=== PATIENT | female | born 1980 | race Caucasian/White ===

== ENCOUNTER 2023-01-30 14:46 | Observation (INO) | payer OTHER, SELFPAY ==
[2023-01-30] VITALS (27 sets, daily range): BP systolic 107–158; BP diastolic 63–100; PULSE 49–99; RESP 12–25; TEMP 36.7; O2SAT 97–100
--- NOTE | ~2023-01-30 | US_ITS ---
Procedure: Duplex Doppler examination of the bilateral carotids. Indication: Syncope Technique: Real time, color-flow and pulse wave Doppler examination of the bilateral carotids was performed. Findings: Gonzalez scale ultrasonography of the right neck demonstrated no significant plaque. There was demonstrat ion of normal color-flow and Doppler waveforms within the right common, internal and external carotid arteries. The peak systolic velocities in the right common, internal and external carotid arteries w ere demonstrated to be 89 cm/sec, 90 cm/sec and 76 cm/sec respectively. The right ICA/CCA ratio was 1 .0.The proximal right internal carotid artery demonstrates 0% stenosis relative to the normal distal artery lumen diameter. Gonzalez scale sonography of the left neck demonstrated no significant plaque. There was demonstration of normal color-flow and wave forms within the left common, internal and external carotid arteries. The peak systolic velocities in the left common, internal and external carotid arteries were demonstrate d to be 114cm/sec, 102 cm/sec and 87 cm/sec respectively. The left ICA/CCA ratio was 1.0. The proxima l left internal carotid artery demonstrates 0% stenosis relative to the normal distal artery lumen di ameter. There was antegrade flow demonstrated in the bilateral vertebral arteries. Impression: No hemodynamically significant stenosis of the bilateral internal carotid arteries. Antegrade flow in the bilateral vertebral arteries. Note: The methodology used is an indirect measurement validated against a direct method (such as the NASCET criteria) that compares diameters at the stenosis to the distal ICA. Reviewed, dictated and finalized at location . Impression: No hemodynamically significant stenosis of the bilateral internal carotid arter ies. Antegrade flow in the bilateral vertebral arteries. Note: The methodology used is an indirect measurement validated against a direct meth od (such as the NASCET criteria) that compares diameters at the stenosis to the distal ICA.
--- NOTE | ~2023-01-30 | MR_ITS ---
MRI of the brain Clinical History: Syncope Technique: Axial and sagittal T1-weighted images were acquired. These were followed by axial T2-weigh roshan, diffusion weighted, gradient, and FLAIR images. Findings: No abnormal signal seen in the brain parenchyma. No acute infarct, intracranial hemorrhage, or mass lesion. Ventricles and subarachnoid spaces are unremarkable. Orbits are unremarkable. Paranasal sinuses and m astoid air cells are clear. Major intracranial flow voids are intact. Sagittal midline structures are intact. IMPRESSION: Unremarkable exam. Reviewed, dictated and finalized at location M. IMPRESSION: Unremarkable exam.
--- NOTE | 2023-01-30 14:52 | ECG_ITS ---
Measurements Intervals [place] Rate: 80 P: 74 DE: 168 QRS: 62 QRSD: 93 T: -12 QT: 393 QTc: 453 Interpretive Statements SINUS RHYTHM POSSIBLE LEFT ATRIAL ENLARGEMENT INCOMPLETE RIGHT BUNDLE BRANCH BLOCK NONSPECIFIC ST & T-WAVE ABNORMALITY- INFERIOR LEADS BASELINE ARTIFACT- V2 BORDERLINE ECG NO PREVIOUS ECG AVAILABLE FOR COMPARISON Electronically Signed On 01-30-2023 15:28:26 CDT by Mu Gomez D.O.
[2023-01-30 15:16] LABS: Basophils Percent Auto 0.4 % (0.2-1.2); Eosinophils Percent Auto 0.3 % (0-4.4); Hematocrit 40.7 % (37.0-47.0); Hemoglobin 14.2 g/dL (12.0-15.0); Immature Granulocyte Absolute 0.02 K/mm3 (0.00-0.031); Immature Granulocyte Percent A 0.3 % (0-0.5); Lymphocytes Percent Auto 16.6 % (18.3-44.2); Mean Corpuscular HGB Conc 34.9 g/dl (32-36); Mean Corpuscular Hemoglobin 31.4 pg (26-34); Mean Platelet Volume 9.7 fl (7.4-10.4); Monocytes Absolute Auto 0.4 K/mm3 (0.1-0.6); Monocytes Percent Auto 4.8 % (2.6-8.5); Neutrophils Absolute Auto 5.6 K/mm3 (1.3-6.7); Neutrophils Percent Auto 77.6 % (45.5-73.1); Platelet Count Result 216 k/mm3 (150-375); Red Blood Count 4.52 M/mm3 (4.2-5.4); Red Cell Distribution Width 11.9 % (11.5-14.5); White Blood Count 7.2 K/mm3 (4.5-10.0)
[2023-01-30 15:26] LABS: Alanine Aminotransferase 10 U/L (6-35); Albumin Level 4.9 g/dL (3.5-5.1); Alkaline Phosphatase 69 U/L (38-126); Anion Gap 9 mmol/L (8-16); Aspartate Amino Transferase 25 U/L (14-36); Bilirubin,Total 1.5 mg/dL (0.2-1.3); Blood Urea Nitrogen 14 mg/dL (7-17); Calcium 9.2 mg/dL (8.4-10.2); Carbon Dioxide 24 mmol/L (22-30); Chloride 103 mmol/L (98-107); Estimated CRCL calculation 57 ml/min; Estimated Glomerular Filt Rate > 60; Glucose 106 mg/dL (65-110); Potassium 3.6 mmol/L (3.4-5.0); Sodium 136 mmol/L (137-145)
[2023-01-30] MEDS: SODIUM CHLORIDE 0.9% IV 1,000 ML 999 ML IV CONT (21:01)
[2023-01-30 21:10] LABS: Appearance Urine Clear (Clear); Bilirubin Urine 1+ (Negative); Blood Urine 2+ (Negative); Color Urine Yellow (Yellow); Glucose Urine UA Negative (Negative); Ketones Urine 2+ mg/dL (Negative); Leukocyte Esterase Ur Negative LEU/UL (Negative); Nitrate Urine Negative (Negative); Protein Urine Negative (Negative); Specific Grav Ur >= 1.030 (1.001-1.035); Urobilinogen Urine 0.2 mg/dL (<2.0)
[2023-01-30 21:17] LABS: Magnesium 2.3 mg/dL (1.6-2.3)
[2023-01-30 21:18] LABS: Lactic Acid Reflex 1.1 mmol/L (0.7-2.0)
[2023-01-30 21:26] LABS: D Dimer 0.36 ug/mL (<0.48)
[2023-01-30 21:33] LABS: Add Urine Microscopic? YES; WBC Urine None seen /hpf
[2023-01-30 21:34] LABS: Bacteria Urine None seen /hpf; RBC Urine 0-2 /hpf (0-2); Squamous Epithelial Cell Urine Rare /hpf (Few)
--- NOTE | 2023-01-30 22:36 | PM.IMHP ---
H&P: HPI History of Present Illness Date/Time: 01/30/23 22:36 Chief Complaint: Syncope Narrative: This is a 42-year-old female with past medical history significant for bipolar disorder, generalized anxiety disorder, major depression disorder. Patient presents to the emergency room due to syncopal episode she had been in her bedroom folding up towels when she had prodromes felt lightheaded, flushed, woke up on the floor. Patient denies any headaches, vision changes, no focal sensorimotor deficit, no jerky movements, no incontinence of bowel or urinary bladder, no fevers, no rigors, no chills, no nausea, no vomiting, no abdominal pain no jerky movements. Patient has been having palpitations at work and near-syncope. While in the emergency room he was noted the patient's heart rate was going down to the 50s noted to be orthostatic as well. Patient is been placed in observation for further evaluation management and treatment. Review of Systems Review of Systems: Syncope Constitutional: Constitutional: Denies chills, Denies fatigue, Denies fever(s), Denies lethargy, Denies malaise, Denies night sweats, Denies poor appetite and Denies weakness Eyes: Eyes: Denies change in vision, Denies floaters and Denies loss of peripheral vision ENT: Denies dysphagia and Denies odynophagia Cardiovascular: Cardiovascular: Denies chest pain, Reports syncope, Reports lightheadedness, Denies radiating jaw, neck or arm pain and Denies dyspnea Respiratory: Respiratory: Denies cough and Denies pain on inspiration Gastrointestinal: Gastrointestinal: Denies abdominal pain, Denies dyspepsia, Denies heartburn, Denies diarrhea, Denies nausea and Denies vomiting Genitourinary: Genitourinary: Denies dysuria Musculoskeletal: Musculoskeletal: Denies muscle weakness Integumentary/Breasts: Skin/Breast: Denies rash Neurologic: Denies focal weakness and Denies Sensory deficit (Neuro) Psychiatric: Psychiatric: Reports no additional psychiatric complaints and Reports as per HPI Endocrine: Endocrine: Denies cold intolerance, Denies flushing, Denies heat intolerance, Denies polyphagia, Denies polydipsia and Denies palpitations Hematologic/Lymphatic: Hematologic/Lymphatic: Reports no additional hematologic/lymphatic complaints and Reports as per HPI Allergic/Immunologic: Allergic/Immunologic: Reports no additional allergic/immunologic complaints and Reports as per [facility] Social History Social History Smoking status: Never smoker Alcohol intake: never Substance use: never Substance use type: does not use Lack of Transportation: No Lack of Food: Never True Current Housing: I Have Housing Concerned About Future Housing: No Difficulty Paying Gas/Electric Bills: No Difficulty Paying for Meds: No Currently Unemployed: No Education: Bachelor's Degree Difficulty w/ Childcare or Family Care: No Spiritual care concerns: No Meds Home Medications and Allergies Home Medications Medication Instructions Recorded Confirmed Type alprazolam 0.5 mg tablet 0.5 mg PO BID 01/31/23 01/31/23 History cariprazine 3 mg capsule (Vraylar) 3 mg PO DAILY 01/31/23 01/31/23 History lithium carbonate 300 mg capsule 300 mg PO HS 01/31/23 01/31/23 History Allergies Allergy/AdvReac Type Severity Reaction Status Date / Time Penicillins Allergy Mild Anaphylaxis Verified 01/30/23 20:24 Vital Signs Vital Signs - 24 hr 01/30/23 14:50 01/30/23 20:20 01/30/23 20:21 Temperature 98.1 F Pulse Rate 99 69 Respiratory Rate 16 13 Blood Pressure 154/85 H 158/90 H Pulse Oximetry 100 100 100 01/30/23 20:23 01/30/23 20:25 01/30/23 20:31 Temperature Pulse Rate 68 81 79 Respiratory Rate Blood Pressure 134/79 131/100 H Pulse Oximetry 01/30/23 20:28 Temperature Pulse Rate 87 Respiratory Rate Blood Pressure 137/95 H Pulse Oximetry Exam Narrative: Patient
--- NOTE | 2023-01-30 22:38 | ED.GENADULT ---
HPI - General Adult General Chief complaint: Syncope Stated complaint: fall Time Seen by Provider: 01/30/23 20:03 History of Present Illness HPI narrative: Patient 42-year-old female who presents the emergency department with chief complaint of syncope. The patient reports that this evening she felt as though she was going to pass out and then went to the floor and then briefly passed out and then had where she noticed that her arms were shaking the patient states that she has not typically had where her arms can of jerk and shake no prior history of seizures but does report that she has a prior history of syncopal episodes patient reports that several years ago she saw cardiology at [facility] but has not had any real work-up in the last 2 years the patient states that she has not had a Holter monitor test recently and has never had a tilt table test patient reports no prior history of bradycardia and reports that they have never really been able to find anything. Related Data Allergies Allergy/AdvReac Type Severity Reaction Status Date / Time Penicillins Allergy Mild Anaphylaxis Verified 01/30/23 20:24 Review of Systems Review of Systems: A 10 system review of systems was completed on the patient and is negative except for what is stated in the HPI. Nursing and ancillary documentation was reviewed. Exam Narrative: GENERAL: Well-appearing, well-nourished, and in no acute distress. HEAD: Normocephalic, atraumatic. EYES: PERRLA and EOMI. ENT: Nares clear, no rhinorrhea or epistaxis. Mucous membranes moist. NECK: Supple. CHEST: Clear to auscultation. No respiratory distress. HEART: Regular rate and rhythm. No murmur heard. Normal peripheral pulses. ABDOMEN: Soft, nontender, nondistended, normal active bowel sounds. EXTREMITIES: Normal range of motion. No edema. SKIN: Warm, dry, no rash. NEURO: No focal deficits. Alert and oriented x3. PSYCH: Normal mood and affect. Course Vital Signs Vital signs: Vital Signs Temperature 36.7 C 01/30/23 14:50 Pulse Rate 99 01/30/23 14:50 Respiratory Rate 16 01/30/23 14:50 Blood Pressure 154/85 H 01/30/23 14:50 Pulse Oximetry 100 01/30/23 14:50 Temperature 36.7 C 01/30/23 14:50 Pulse Rate 65 01/30/23 22:37 Respiratory Rate 19 01/30/23 22:37 Blood Pressure 107/63 01/30/23 22:01 Pulse Oximetry 99 01/30/23 22:37 Medical Decision Making MDM Narrative Medical decision making narrative: Differential diagnosis includes dysrhythmia, electrolyte abnormality, dehydration, POTS, orthostatic hypotension, UTI EKG interpreted by me sinus rhythm rate of [address] elevation or ST depression Patient was observed on a modeling director and showed a sinus bradycardia with a rate of 53 on the monitor in the emergency department. Laboratory studies were obtained which showed a urinalysis that had 2+ ketones no evidence of UTI electrolytes showed a bilirubin of 1.5 but a potassium of four 3.6 magnesium was 2.3 CBC showed a white blood cell count of 7.2 and hemoglobin of 14.2. With the patient having an episode of bradycardia in the emergency department frequent syncopal episodes Case was discussed with the hospitalist for observation overnight. Vital Signs Vital Signs: Vital Signs Temperature 36.7 C 01/30/23 14:50 Pulse Rate 99 01/30/23 14:50 Respiratory Rate 16 01/30/23 14:50 Blood Pressure 154/85 H 01/30/23 14:50 Pulse Oximetry 100 01/30/23 14:50 Temperature 36.7 C 01/30/23 14:50 Pulse Rate 65 01/30/23 22:37 Respiratory Rate 19 01/30/23 22:37 Blood Pressure 107/63 01/30/23 22:01 Pulse Oximetry 99 01/30/23 22:37 Lab Data 01/30/23 15:03 01/30/23 15:03 Labs: Lab Results 01/30/23 01/30/23 01/30/23 Range/Units 15:03 15:03 21:00 WBC 7.2 (4.5-10.0) K/mm3 RBC 4.52 (4.2-5.4) M/mm3 Hgb 14.2 (12.0-15.0) g/dL Hct 40.7 (37.0-47.0) % MCV 90.0 (80-100) fl MCH 31.4 (26-3
[2023-01-31] VITALS (13 sets, daily range): BP systolic 91–132; BP diastolic 54–74; PULSE 53–83; RESP 14–16; TEMP 36.2–37.1; O2SAT 99–100; BMI 23.7
--- NOTE | 2023-01-31 | ECHO_ITS ---
Patient Info Name: Millie Orta Age: 42 years : 1980 Gender: Female Ht: 62 in Wt: 130 lbs BSA: 1.62 m2 HR: 60 bpm BP: 91 / 54 mmHg Technical Quality: Good Exam Date: 01/31/2023 7:56 AM Exam Location: [facility] Patient Status: Inpatient Admit Date: 01/30/2023 Staff Ordering Physician: Mu Gomez DO Medical Coding Instructor: Ana White RDCS Attending Provider: Juan Escobedo MD Referring Physician: Jason PALOMARES; Exam Type: CA echo doppler color flow Study Info Indications R55 - Syncope and collapse Complete two-dimensional, color flow and Doppler transthoracic echocardiogram is performed. Summary 1. Complete two-dimensional, color flow and Doppler transthoracic echocardiogram is performed. 2. Left ventricular chamber dimension is normal. 3. Left ventricular systolic function is normal, estimated at 60-65%. 4. The left ventricular diastolic function is normal. 5. E/e' 6 is not elevated. 6. There is trace aortic valve regurgitation. 7. There is trace tricuspid valve regurgitation. 8. No pulmonary hypertension, estimated pulmonary arterial systolic pressure is 26 mmHg. 9. Dilated inferior vena cava with >50% collapse upon inspiration consistent with elevated right atrial pressure, 10 mmHg. Left Ventricle E/e' 6 is not elevated. Left ventricular chamber dimension is normal. Left ventricular systolic function is normal, estimated at 60-65%. The left ventricular diastolic function is normal. Right Ventricle Right ventricular chamber dimension is normal. Right ventricular systolic function is normal. Left Atria Left atrial chamber dimension is normal. Right Atria Right atrial chamber dimension is normal. Aortic Valve The aortic valve is trileaflet. There is no aortic valve stenosis. There is trace aortic valve regurgitation. Pulmonic Valve There is no pulmonic regurgitation. Mitral Valve There is no mitral valve stenosis. There is no mitral valve regurgitation. Tricuspid Valve There is trace tricuspid valve regurgitation. No pulmonary hypertension, estimated pulmonary arterial systolic pressure is 26 mmHg. Pericardium/Pleural There is no pericardial effusion. Inferior Vena Cava Dilated inferior vena cava with >50% collapse upon inspiration consistent with elevated right atrial pressure, 10 mmHg. Aorta The aortic root size at the sinus of Valsalva is normal. Left Ventricular Outflow Tract Name Value Normal LVOT 2D LVOT Diameter 1.9 cm LVOT Doppler LVOT Peak Gradient 3 mmHg LVOT Mean Gradient 2 mmHg LVOT VTI 21 cm LVOT VTI/AV VTI Ratio 0.8 LVOT Stroke Volume 59 ml Pulmonic Valve Name Value Normal RVOT Doppler RVOT Peak Gradient 1 mmHg
[2023-01-31] MEDS: SODIUM CHLORIDE 0.9% IV 1,000 ML 125 ML IV CONT ×2 (03:29→15:09)
--- NOTE | 2023-01-31 05:55 | PHAR ---
PHARMACY VERIFIED HOME MED: *HOME MED* Cariprazine [Vraylar] 3 mg capsule TAKE 1 CAPSULE BY MOUTH ONCE DAILY IN THE MORNING
--- NOTE | 2023-01-31 08:05 | PM.CNCAR ---
Assessment and Plan Assessment and plan (1) Syncope: Code(s): R55 - Syncope and collapse Status: Acute Assessment and Plan: Probably orthostasis as that was apparently positive in ER or vasovagal episodes with prolonged standing or walking. Telemetry is unremarkable. Advise to keep well hydrated. IVF given. She has compression stockings at home and advise to wear that during the day. Obtain echo. Hospitalist ordered MRI brain, carotids duplex given convulsing event also. Upon discharge, would have her wear event monitor. History of Present Illness History of Present Illness Consult date/time: 01/31/23 08:05 Reason For Visit: Syncope, Bradycardia Narrative: 42 yr old woman presented to ER with syncope. She has a long history of dizziness and syncope for 15 years, generalized anxiety disorder, bipolar disorder. Reports she had another black out event yesterday while standing and folding towels. She knew it was coming as they occur every 3 months with tunnel vision, and she got on her knees but next thing she knew she was on her back and her entire body and arms were convulsing. She has not had that happen before, but she was witnessing this happen. She can normally only walk short distances due to getting dizziness. She has dizziness occur 3 times a week for 15 years while either standing or walking, and getting down on her knees would abort a syncopal event. Denies orthopnea, PND, edema, chest pain sob. Review of Systems Review of Systems: All systems reviewed & are unremarkable except as noted in HPI and below Constitutional: Constitutional: Reports as per HPI, Denies chills and Denies fever(s) Cardiovascular: Cardiovascular: Reports as per HPI, Denies chest pain, Denies irregular heart rhythm, Denies leg edema and Reports lightheadedness Respiratory: Respiratory: Reports as per HPI and Denies dyspnea Gastrointestinal: Gastrointestinal: Reports as per HPI and Denies abdominal pain Genitourinary: Genitourinary: Reports as per HPI and Denies dysuria Musculoskeletal: Musculoskeletal: Reports as per HPI Neurologic: Reports as per HPI, Reports dizziness and Reports syncope [facility] Social History Social History Smoking status: Never smoker Alcohol intake: never Substance use: never Substance use type: does not use Lack of Transportation: No Lack of Food: Never True Current Housing: I Have Housing Concerned About Future Housing: No Difficulty Paying Gas/Electric Bills: No Difficulty Paying for Meds: No Currently Unemployed: No Education: Bachelor's Degree Difficulty w/ Childcare or Family Care: No Spiritual care concerns: No Meds Home Medications and Allergies Home Medications Medication Instructions Recorded Confirmed Type alprazolam 0.5 mg tablet 0.5 mg PO BID 01/31/23 01/31/23 History cariprazine 3 mg capsule (Vraylar) 3 mg PO DAILY 01/31/23 01/31/23 History lithium carbonate 300 mg capsule 300 mg PO HS 01/31/23 01/31/23 History Allergies Allergy/AdvReac Type Severity Reaction Status Date / Time Penicillins Allergy Mild Anaphylaxis Verified 01/30/23 20:24 Vital Signs Vital Signs - 24 hr 01/30/23 14:50 01/30/23 20:20 01/30/23 20:21 Temperature 98.1 F Pulse Rate 99 69 Respiratory Rate 16 13 Blood Pressure 154/85 H 158/90 H Pulse Oximetry 100 100 100 Oxygen Delivery 01/30/23 20:23 01/30/23 20:25 01/30/23 20:31 Temperature Pulse Rate 68 81 79 Respiratory Rate Blood Pressure 134/79 131/100 H Pulse Oximetry Oxygen Delivery 01/30/23 20:28 01/30/23 20:22 01/30/23 20:29 Temperature Pulse Rate 87 69 80 Respiratory Rate 12 23 H Blood Pressure 137/95 H 137/95 H Pulse Oximetry 100 Oxygen Delivery 01/30/23 20:30 01/30/23 20:31 01/30/23 20:53 Temperature Pulse Rate 84 78 68 Respiratory Rate 15 25 H 15 Blood Pressure 131/100 H Pulse Oximetry
[2023-01-31 08:09] LABS: Lithium 0.4 mmol/L (0.6-1.2)
--- NOTE | 2023-01-31 16:04 | PM.IMPN ---
Progress Note: A&P Assessment and Plan (1) Syncope: Code(s): R55 - Syncope and collapse Status: Acute Assessment and Plan: blood pressure stool soft patient complains of fatigue and dizziness upon standing continue to monitored telemetry continue IV fluids Echocardiogram with normal diastolic and systolic function, EF 60-65% no significant valvular disease Carotid artery Doppler without stenosis MRI of the brain and brainstem without acute infarcts continue orthostatics daily - today lying BP 96 over 57 and heart rate 63, sitting BP 99/57, HR 64, standing 97/57 and heart rate 70 Patient also on psychotropics could be contributing to orthostatism QTC interval within normal limits event monitor placed per Cardiology and will continue for 30 days post discharge (2) Bradycardia: Code(s): R00.1 - Bradycardia, unspecified Status: Acute Assessment and Plan: Patient at the lower end normal heart rate Might benefit from Holter monitor or event recorder monitor as above. Cardiology is following (3) Bipolar disorder: Code(s): F31.9 - Bipolar disorder, unspecified Status: Acute Assessment and Plan: lithium carbonate level 0.4 Continue home meds Stable Follow-up in outpatient setting Time Spent With Patient Time with patient: 15 - 25 minutes Subjective Date/time seen: 01/31/23 16:04 she reports persistent fatigue and dizziness with standing. No palpitations. Holter monitor placed. Review of Systems Review of Systems: All systems reviewed & are unremarkable except as noted in HPI and below Exam Narrative: General: No acute distress.? well-developed adult female lying in bed. Nontoxic Mental Status/Psych: Awake, alert and oriented x4 with clear speech. Pleasant and cooperative. Skin: Skin fair, warm, dry and intact without rashes or lesions. No open wounds. Good turgor.? HEENT: Normocephalic. Sclera is non-icteric. Pupils equal and round. Oral mucosa pink and moist. Neck: No JVD. Heart: S1 and S2 regular rate and rhythm. No murmurs, gallops, or rubs auscultated. Chest: Respirations even and unlabored. Lung sounds are clear to auscultation without wheezes, rhonchi, or rales. Abdomen: Soft, obese and non-tender to palpation.? Bowel sounds present in all 4 quadrants. No guarding. Extremities:? No edema, erythema or calf tenderness. Grossly normal ROM. Neurological: No focal deficits. Sensation intact all extremities Objective Data Vital Signs Vital Signs: Vital Signs - 24 hr 01/30/23 20:20 01/30/23 20:21 01/30/23 20:23 Temperature Pulse Rate 69 68 Respiratory Rate 13 Blood Pressure 158/90 H Pulse Oximetry 100 100 Oxygen Delivery 01/30/23 20:25 01/30/23 20:31 01/30/23 20:28 Temperature Pulse Rate 81 79 87 Respiratory Rate Blood Pressure 134/79 131/100 H 137/95 H Pulse Oximetry Oxygen Delivery 01/30/23 20:22 01/30/23 20:29 01/30/23 20:30 Temperature Pulse Rate 69 80 84 Respiratory Rate 12 23 H 15 Blood Pressure 137/95 H Pulse Oximetry 100 Oxygen Delivery 01/30/23 20:31 01/30/23 20:53 01/30/23 21:03 Temperature Pulse Rate 78 68 65 Respiratory Rate 25 H 15 16 Blood Pressure 131/100 H Pulse Oximetry 99 99 Oxygen Delivery 01/30/23 21:19 01/30/23 21:35 01/30/23 21:45 Temperature Pulse Rate 62 49 L 60 Respiratory Rate 15 14 14 Blood Pressure Pulse Oximetry 100 100 98 Oxygen Delivery 01/30/23 21:46 01/30/23 22:00 01/30/23 22:01 Temperature Pulse Rate 67 60 64 Respiratory Rate 14 14 14 Blood Pressure 110/78 107/63 Pulse Oximetry 100 97 99 Oxygen Delivery 01/30/23 22:37 01/30/23 22:45 01/30/23 22:46 Temperature Pulse Rate 65 71 64 Respiratory Rate 19 15 16 Blood Pressure 143/87 H Pulse Oximetry 99 100 100 Oxygen Delivery 01/30/23 23:13 01/30/23 23:15 01/30/23 23:16 Temperature Pulse Rate 58 L 55 L 68 Respiratory Rate 16 14 17 Blood P
[2023-01-31] MEDS: LITHIUM CARBONATE 300 MG CAPSULE PO (21:15)
[2023-02-01] VITALS: PULSE 62
[2023-02-01] MEDS: SODIUM CHLORIDE 0.9% IV 1,000 ML 125 ML IV CONT (00:30)
[2023-02-01 04:00] VITALS: PULSE 53
[2023-02-01 05:38] VITALS: BP 99/53; PULSE 51; RESP 14; TEMP 36.3; O2SAT 100
[2023-02-01 06:42] LABS: Hematocrit 37.3 % (37.0-47.0); Hemoglobin 12.6 g/dL (12.0-15.0); Mean Corpuscular HGB Conc 33.8 g/dl (32-36); Mean Corpuscular Hemoglobin 31.7 pg (26-34); Mean Corpuscular Volume 93.7 fl (80-100); Mean Platelet Volume 10.4 fl (7.4-10.4); Platelet Count Result 176 k/mm3 (150-375); Red Blood Count 3.98 M/mm3 (4.2-5.4); Red Cell Distribution Width 11.9 % (11.5-14.5); White Blood Count 3.9 K/mm3 (4.5-10.0)
[2023-02-01 07:08] LABS: Alanine Aminotransferase 8 U/L (6-35); Albumin Level 3.7 g/dL (3.5-5.1); Alkaline Phosphatase 56 U/L (38-126); Anion Gap 2 mmol/L (8-16); Aspartate Amino Transferase 18 U/L (14-36); Bilirubin,Total 0.6 mg/dL (0.2-1.3); Blood Urea Nitrogen 9 mg/dL (7-17); Calcium 8.2 mg/dL (8.4-10.2); Carbon Dioxide 25 mmol/L (22-30); Chloride 109 mmol/L (98-107); Estimated CRCL calculation 64 ml/min; Estimated Glomerular Filt Rate > 60; Glucose 83 mg/dL (65-110); Magnesium 2.1 mg/dL (1.6-2.3); Potassium 4.1 mmol/L (3.4-5.0); Sodium 136 mmol/L (137-145)
[2023-02-01 08:00] VITALS: PULSE 56
--- NOTE | 2023-02-01 08:00 | PM.PNCARD ---
Progress Note: A&P Assessment and Plan (1) Syncope: Code(s): R55 - Syncope and collapse Status: Acute Assessment and Plan: Probably orthostasis as that was apparently positive in ER or vasovagal episodes with prolonged standing or walking or due to side effect of [place]/or Vraylar. Telemetry is unremarkable. Advise to keep well hydrated. IVF given. She has compression stockings at home and advise to wear that during the day. 01/31/23 Echo: EF 60-65%, trace AI/TR. MRI brain, carotids duplex are normal. Upon discharge, would have her wear event monitor which has already been placed. May d/c home from cardiology standpoint and have her f/u in 1 month. Subjective Date/time seen: 02/01/23 08:00 Interval history: No more dizziness. No chest pain or sob. Exam Const: General: cooperative, healthy appearing and comfortable Orientation/consciousness: oriented to person, oriented to place and oriented to time Resp: Auscultation: clear to auscultation bilaterally, no crackles, no rales, no rhonchi and no wheezes Cardio: Rate: regular rate Rhythm: regular rhythm Heart sounds: no murmurs Peripheral pulses: dorsalis pedis present Neuro: General: oriented to person, oriented to place and oriented to time Extrem: Right lower extremity: no edema Left lower extremity: no edema Objective Data Vital Signs Vital Signs: Vital Signs - 24 hr 01/31/23 09:33 01/31/23 12:00 01/31/23 14:00 Temperature 97.2 F L Pulse Rate 66 63 Respiratory Rate 16 Blood Pressure 95/57 L Pulse Oximetry 99 100 Oxygen Delivery Room Air 01/31/23 16:00 01/31/23 21:54 01/31/23 20:00 Temperature 98.8 F Pulse Rate 58 L 70 Respiratory Rate 14 Blood Pressure 93/54 L Pulse Oximetry 100 100 Oxygen Delivery Room Air 01/31/23 20:00 02/01/23 00:00 02/01/23 04:00 Temperature Pulse Rate 63 62 53 L Respiratory Rate Blood Pressure Pulse Oximetry Oxygen Delivery 02/01/23 05:38 Temperature 97.4 F L Pulse Rate 51 L Respiratory Rate 14 Blood Pressure 99/53 L Pulse Oximetry 100 Oxygen Delivery Intake/Output Intake/Output: Intake & Output 03/1201/30/23 01/31/23 02/01/23 23:59 23:59 23:59 23:59 Intake Total 1000 2920 500 Balance 1000 2920 500 Meds/Results Medications: Active Medications Generic Name Dose Route Start Last Admin Trade Name Mimi PRN Reason Stop Dose Admin Home Med 1 each 01/31/23 09:00 01/31/23 08:49 *Home Med* Cariprazine [Vraylar] 3 Mg Capsule PO 03/02/23 08:59 1 each DAILY SERGIO Administration Sodium Chloride 1,000 mls @ 125 mls/hr 01/30/23 22:50 02/01/23 00:30 Normal Saline Iv IV CONT 125 mls/hr .Q8H SERGIO Administration [place] Carbonate 300 mg 01/31/23 21:00 01/31/23 21:15 [place] Carbonate 300 Mg Capsule PO 300 mg HS SERGIO Administration Perflutren Lipid Microsphere 0 ml 01/31/23 00:38 Perflutren Lipid Microspheres 1.5 Ml Vial Diluted To 10 Ml Total Volume IV PUSH 02/02/23 00:38 ONCE PRN adequate visualization Protocol Radiology Results: ITS Impressions Brain MRI 01/31/23 11:01 IMPRESSION: Unremarkable exam. Carotid Doppler Study 01/31/23 11:10 Impression: No hemodynamically significant stenosis of the bilateral internal carotid arteries. Antegrade flow in the bilateral vertebral arteries. Note: The methodology used is an indirect measurement validated against a direct method (such as the NASCET criteria) that compares diameters at the stenosis to the distal ICA. Labs Labs: Laboratory Results - last 24 hr 01/31/23 01/31/23 02/01/23 07:19 07:19 05:43 WBC 3.9 L RBC 3.98 L Hgb 12.6 Hct 37.3 MCV 93.7 MCH 31.7 MCHC 33.8 RDW 11.9 Plt Count 176 MPV 10.4 Sodium Potassium Chloride Carbon Dioxide Anion Gap BUN Creatinine Estim Creat Clear Calc Estimated GFR Glucose Calcium Magn
--- NOTE | 2023-02-01 12:19 | PM.DS ---
DS: Admitting Diagnosis Discharge Date 02/01/23 Admitting Diagnosis Syncope and collapse Bradycardia, unspecified Bipolar disorder DS: Discharge Diagnosis Discharge Diagnosis (1) Syncope: Code(s): R55 - Syncope and collapse Status: Acute Assessment and Plan: blood pressure soft patient complains of fatigue and dizziness upon standing that improved with IV fluids. monitored telemetry and sinus bradycardia without arrhythmia or ectopy. Echocardiogram with normal diastolic and systolic function, EF 60-65% no significant valvular disease Carotid artery Doppler without stenosis MRI of the brain and brainstem without acute infarcts Orthostatics negative- lying BP 96/57 and heart rate 63, sitting BP 99/57, HR 64, standing 97/57 and heart rate 70 Patient also on psychotropics could be contributing to orthostatism- lithium level 0.4 QTC interval within normal limits event monitor placed per Cardiology and will continue for 30 days post discharge with outpatient follow up (2) Bradycardia: Code(s): R00.1 - Bradycardia, unspecified Status: Acute Assessment and Plan: Patient at the lower end normal heart rate as above. Cardiology is following (3) Bipolar disorder: Code(s): F31.9 - Bipolar disorder, unspecified Status: Acute Assessment and Plan: lithium carbonate level 0.4 Continue [place] at home dose Follow-up in outpatient setting DS: Summary Hospital Course Reason for hospitalization: syncope Hospital Course: Millie Orta is a 42-year-old female with bipolar disorder and generalized anxiety disorder.? Patient presented to the emergency room due to syncopal episode. She had been in her bedroom folding towels when she had prodromes, felt lightheaded, flushed, woke up on the floor.?She denied headaches, vision changes, focal sensorimotor deficit, jerky movements, incontinence of bowel or urinary bladder, fevers, rigors, chills, nausea, vomiting, or abdominal pain.? Patient has been having palpitations at work and near-syncope.? While in the emergency room, patient's heart rate was going down to the 50s and noted to be orthostatic, as well.? She was stared on IV fluids and admitted for observation. She was monitored on telemetry. cardiology was consulted. MRI brain, carotid US and transthoracic echocardiogram were obtained and unremarkable. Thirty-day vent monitor was placed and she was discharged home in stable condition. She will have follow up with cardiology. She was counseled on diet, fluids, changing positions slowly and safety precautions discussed. Status at Discharge Cognitive/behavioral status at discharge: AOx4 Functional status at discharge: independent ambulation Overall status at discharge: patient is back to baseline Time Spent with Patient Time attestation: Total time spent providing and/or coordinating discharge services: Time spent: Greater than 30 minutes Exam Narrative: General: No acute distress.? well-developed adult female lying in bed. Nontoxic appearing. Temp 97.4F oral, HR 51, BP 99/53, RR 14, spO2 100% RA, BMI 23.8 kg/m2 Mental Status/Psych: Awake, alert and oriented x4 with clear speech. Pleasant and cooperative. Skin: Skin fair, warm, dry and intact without rashes or lesions. No open wounds. Good turgor.? HEENT: Normocephalic. Sclera is non-icteric. Pupils equal and round. Oral mucosa pink and moist. Neck: No JVD. Heart: S1 and S2 regular rate and rhythm. No murmurs, gallops, or rubs auscultated. Chest: Respirations even and unlabored. Lung sounds are clear to auscultation without wheezes, rhonchi, or rales. Abdomen: Soft, obese and non-tender to palpation.? Bowel sounds present in all 4 quadrants. No guarding. Extremities:? No edema, erythema or calf tenderness. Grossly normal ROM. Neurological: No focal deficits. Sensation intact all extremities DS: Data Data Completed and Pending Completed studies during hospitalization: EKG - Si
== END 2023-02-01 12:40 | disposition home or self-care (01) ==
LOC: ANHED 22:46 → ANH3MEDSUR 01-31 02:27
PROVIDERS: Emergency Medicine; Internal Medicine Cardiovascular Disease; Nurse Practitioner Family; Admitting Provider Internal Medicine; Emergency Provider Emergency Medicine; Visit Provider Internal Medicine
DX: R55 Syncope and collapse (principal); R00.1 Bradycardia, unspecified; F31.9 Bipolar disorder, unspecified; R42 Dizziness and giddiness; R53.83 Other fatigue; I45.10 Unspecified right bundle-branch block; G90.A Postural orthostatic tachycardia syndrome [POTS]; Z79.899 Other long term (current) drug therapy
CPT/HCPCS: 36415; 70551; 80053; 80178; 81001; 81025; 83605; 83735; 84443; 85025; 85027; 85380; 93005; 93306; 93880; 96360; 96361; 99285; A9270; G0378; J7030

== ENCOUNTER 2024-05-17 13:45 | Outpatient (CLI) | payer OTHER, SELFPAY | END 2024-05-17 13:46 | disposition home or self-care (01) | LOC: ANHLAB 13:47 | PROVIDERS: Visit Provider Obstetrics & Gynecology | DX: Z01.818 Encounter for other preprocedural examination (principal); N93.9 Abnormal uterine and vaginal bleeding, unspecified | CPT/HCPCS: 36415; 86850; 86900; 86901 ==

== ENCOUNTER 2024-05-22 01:38 | Day surgery (SDC) | payer OTHER, SELFPAY ==
--- NOTE | 2024-05-14 12:29 | PC.NURSE ---
Report to the Outpatient Waiting Room, entrance under the green pavilion located off [facility], at time 0600 on date 05/22/24. Planned Procedure Time: 07. Time changes happen often and if your time is changed the preop area will call you the afternoon before. - You and your visitor will be asked to self-screen and do not enter if you have any COVID symptoms. - A mask is optional within the hospital at this time. Patients may have clear liquids (water, carbonated beverages, clear teas, apple juice) until 3 hours prior to surgery with a maximum of 20 ounces. 0430 - No food from midnight until time of surgery - Infants may have breast milk until 4 hours before surgery, formula 6 hours prior to surgery. - Children will be allowed to drink immediately following surgery. If applicable, please bring a bottle or sippy cup to assist with drinking. Juice, water, soda, and popsicles are readily available. For infants on formula, please bring formula the day of surgery. Pacifiers are allowed. Take the following medications with a SIP of water the morning of surgery: clonazepam, vraylar DO NOT STOP ANY OF YOUR OTHER PRESCRIPTION MEDICATIONS PRIOR TO SURGERY ?EXCEPT THE FOLLOWING Medications to discontinue per physician adderal- last dose 05/21/24, probiotic- last dose 05/19/24 Date to take last dose Please no make-up, nail sami, hairspray, perfume, deodorant, or body powder the day of surgery. No jewelry (including any body piercings) or valuables the day of surgery, leave them at home. Please take a shower or bath the night before, or the morning of, surgery with an antibacterial soap. Wear comfortable, loose fitting clothing. Children are encouraged to wear pajamas. - Jewelry must be removed prior to entering the operating room. Rings and piercings that are not removed may be cut off. - The hospital will not accept responsibility for valuables. - Please leave all valuables, including medications, at home the day of surgery. If you are going home after surgery, a licensed bobtail driver must drive you home. - NO public transportation without another adult if you receive anesthesia. - We recommend that an adult stay with you for 24 hours following discharge. - We also recommend that you do not drive, make important decision, drink alcoholic beverages, or take any drugs that were not prescribed by your health care provider for at least 24 hours after your discharge time. For Pediatric surgeries, we recommend two adults accompany the child home. Follow any additional instructions given to you from your surgeon. If you or anyone in your household have experienced Covid symptoms in the past week, please notify your surgeon or the nurse liaison at the phone number below for possible testing. Telephone instructions given to Patient- Millie Orta and asked if any additional questions and then verbalized understanding. Patient advised to call surgeon office or pre surgery nurse liaison [phone] if any additional questions.
[2024-05-22] VITALS (11 sets, daily range): BP systolic 96–154; BP diastolic 48–85; PULSE 50–100; RESP 15–24; TEMP 36.1–37.3; O2SAT 96–100; BMI 22.1
[2024-05-22] MEDS: LACTATED RINGERS 1,000 ML 30 ML IV CONT ×3 (06:50→10:45)
[2024-05-22] MEDS: ACETAMINOPHEN 500 MG TABLET 1000 MG PO (06:50)
[2024-05-22] MEDS: KETOROLAC 15 MG/ML VIAL (*BKC) IV PUSH (06:55)
--- NOTE | 2024-05-22 07:09 | P.PNAN_ITS ---
Anes - Initial Pre Proc Eval Procedure: Operation Date: 05/22/24 07:30 Proposed Procedures p Total Laparoscopic Hysterectomy with Bilateral Salpingectomy - Harshil Giordano MD Date/Time: 05/22/24 07:09 Surgeon: Harshil Giordano MD Pre Op Diagnosis: abnormal uterine bleeding Patient Data Age: 43 Gender: F Height: 1.57 m Weight: 55 kg Allergies Allergy/AdvReac Type Severity Reaction Status Date / Time Penicillins Allergy Mild Anaphylaxis Verified 05/22/24 06:42 Home Medications Medication Instructions Recorded Confirmed Type cariprazine 3 mg capsule (Vraylar) 1.5 mg PO DAILY 01/31/23 05/22/24 History clonazepam 0.5 mg tablet 0.5 mg PO DAILY 05/14/24 05/22/24 History dextroamphetamine-amphetamine ER 20 mg PO DAILY 05/14/24 05/22/24 History 10 mg 24hr capsule,extend release Patient hx anesthesia problems: none Family hx anesthesia problems: none Results Review: All pre-operative results and documents have been reviewed as part of the pre- operative evaluation. [facility] Social History Social History Smoking packs per day: 0.75 Smoking cigarettes per day: 15.0 Years smoked: 5 Smoking pack-years: 3.75 Smoking status: Former smoker Tobacco type: e-cigarettes/vaping Alcohol intake: current Drinks per week: 8 Substance use: never Substance use type: does not use Lack of Transportation: No Lack of Food: Never True Current Housing: I Have Housing Concerned About Future Housing: No Difficulty Paying Gas/Electric Bills: No Difficulty Paying for Meds: No Currently Unemployed: No Education: Bachelor's Degree Difficulty w/ Childcare or Family Care: No Living arrangements: alone Spiritual care concerns: No Anes - Eval Final PreProcedure Day of Procedure 05/22/24 07:09 Patient weight: normal Heart: regular rate and rhythm Lungs: clear to auscultation Airway: Mallampati scale class II Neurological: alert and oriented Last oral intake: >/= 8 hours ASA classification: III Emergent: no Anesthetic plan: proceed Anesthesia type and monitoring: general ETT and standard monitoring Results Review: All pre-operative results and documents have been reviewed as part of the pre- operative evaluation. Informed Consent: The patient's anesthetic plan and its attendant risks and benefits were discussed with the patient/family/POA. Questions were solicited and answers provided to the satisfaction of the patient/family/POA.
--- NOTE | 2024-05-22 07:16 | WPDHPUPDATE1 ---
History and Physical Update Update Date/Time: 05/22/24 07:16 History and Physical has been reviewed, including an updated exam of the patient. There are NO changes in the patient's condition. Risks, benefits, and alternatives have been discussed and questions answered. Patient agrees to proceed with procedure.
[2024-05-22] MEDS: ceFAZolin 2 GM/D5W 50 ML 2 GM/50 ML BAG IVPB (07:28)
[2024-05-22] MEDS: ceFAZolin SODIUM 1 GM VIAL (08:08)
--- NOTE | 2024-05-22 09:16 | SUR.OPER ---
methylene blue injected by anesthesia at 0907
[2024-05-22] MEDS: fentaNYL CITRATE INJ (*CRX) 100 MCG/2 ML VIAL 25 MCG IV PUSH ×7 (09:51→11:14)
[2024-05-22] MEDS: MEPERIDINE HCL INJ (*CRX) 50 MG/ML AMPUL 25 MG IV PUSH (10:07)
[2024-05-22] MEDS: diazePAM INJ (*CRX) 10 MG/2 ML SYRINGE 2.5 MG IV PUSH (10:14)
--- NOTE | 2024-05-22 10:14 | W.PM.PROC2 ---
Procedure Note - Detailed Date of Procedure 05/22/24 Pre-op Diagnosis abnormal uterine bleeding Post-op Diagnosis Same Procedure Performed Total laparoscopic hysterectomy, bilateral salpingectomy, cystoscopy Surgeon Harshil Giordano MD Anesthesia General Findings enlarged fibroid uterus, normal appearing tubes and ovaries, normal-appearing vulva, vagina, cervix. Description of Procedure This patient was taken to the operating room. She was prepped and draped in the dorsal lithotomy position after induction of general anesthesia. The uterine manipulator and Jose cup were placed. This was done with a speculum and tenaculum. The speculum was placed. The cervix was grasped with a tenaculum. The stay sutures were placed at 3 and 9:00 a.m.. The stay sutures of 0 Vicryl were brought through the appropriately sized Jose cup. The tip of the CARY manipulator was placed in the intrauterine cavity. The cup was slid into place around the cervix and into the fornices. It was locked into place. The sutures were then wrapped around the handle and tied under tension. A 5 mm skin incision was made in the left upper quadrant the abdomen. A 5 mm trocar was inserted into the intrauterine cavity under direct visualization of the scope. Pneumoperitoneum was achieved. A left lower quadrant 11 mm incision was made with scalpel. An 11 mm trocar was inserted into the anterior abdominal cavity under direct visualization the scope. A 5 mm infraumbilical incision was made with a scalpel and a 5 mm trocar was inserted the intra-abdominal cavity under direct visualization of the scope. Bilateral ureteral lysis was performed. This was done from the pelvic brim down to the uterine artery. This was done with careful dissection using sharp and blunt dissection. The fallopian tubes were removed bilaterally. The mesosalpinx around the fallopian tubes were cauterized transected with LigaSure cautery. This was done in a bilateral fashion from the ovary to the uterine cornua. The fallopian tube was transected at the uterine cornu and amputated bilaterally. The tube was taken out the left lower quadrant trocar site. In a stepwise fashion along the lateral aspects of the uterus the round ligament and broad ligaments were cauterized transected down to the level of the uterine arteries. A bladder flap was created in the bladder was moved distally to the end of the cervix and over the Jose cup. The bilateral uterine arteries were cauterized and transected. Colpotomy was then performed. In a circumferential fashion the vagina was transected using unipolar cautery. The incision was made down on the Jose cup. when the colpotomy was completed, the uterus and cervix were taken out through the vagina. A pneumo occluder was placed in the vagina. The vaginal cuff was closed with a 0 V lock suture in a running fashion. The pelvis was irrigated with copious amounts antibiotic irrigation. The ureters were again examined and found to be intact and flowing freely under the uterine arteries into the bladder. The bladder was intact. It was examined directly. Cystoscopy was performed after administration of methylene blue. The cystoscope was inserted. Bladder was distended with fluid. The ureteric meatus was observed bilaterally. Blue fluid was seen to egress bilaterally. The bladder was drained and the cystoscope was withdrawn. The vagina was irrigated with Betadine solution after removal of the Pneumo occluder. The patient was taken to recovery room. She was stable condition. Sponge lap and needle counts were correct x2. Drains Yes Packing No Pathology Yes Complications No immediate complications Condition Stable Disposition Floor
[2024-05-22] MEDS: HYDROmorphone HCL INJ (*CRX) 1 MG/ML SYR IV PUSH ×3 (10:28→10:48)
--- NOTE | 2024-05-22 11:27 | PC.NURSE ---
This patient, Millie Orta, was received from PACU via bed on 05/22/24 at 1127. Patient/family oriented to unit policies and routines.
[2024-05-22] MEDS: KETOROLAC 30 MG/ML VIAL (*BKC) IV PUSH (11:49)
[2024-05-22] MEDS: SIMETHICONE 80 MG TAB.CHEW PO ×2 (11:50→18:45)
[2024-05-22] MEDS: DEXTROSE 5%/0.45% SOD CHL 1,000 ML 125 ML IV CONT (11:50)
[2024-05-22] MEDS: HYDROcodone/acetaminophen (*CRX) 5-325 MG TABLET 1 TAB PO (13:54)
--- NOTE | 2024-05-22 18:39 | PC.NURSE ---
1720: Unable to chart on I and O intervention: Pt had PO intake of 800 cc and output via jane catheter of 600 cc. At 1730: Pt ambulated to the BR and voided 25 cc clear yellow fluid.
--- NOTE | 2024-05-22 18:52 | PC.NURSE ---
Spoke with Dr. Giordano at 1851 regarding patient's request for discharge tonight. Reported that pain is under control, patient is ambulating, vaginal bleeding is minimal, surgical sites intact. Patient voided 200mL. Dr. Giordano will put in discharge orders to go home. Will go over discharge instructions with patient and take IV out.
== END 2024-05-22 19:10 | disposition home or self-care (01) ==
LOC: ANHSURGERY 06:12 → ANHOB2 11:22
PROVIDERS: Visit Provider Obstetrics & Gynecology
PROC: 0UT9FZZ Resection of Uterus, Via Natural or Artificial Opening With Percutaneous Endoscopic Assistance (ICD-10-PCS; CPT 58571; principal; 2024-05-22 07:30)
DX: D25.1 Intramural leiomyoma of uterus (principal); N93.9 Abnormal uterine and vaginal bleeding, unspecified; Z87.891 Personal history of nicotine dependence
CPT/HCPCS: 58571; 36415; 86850; 86900; 86901; 88307; 99199; A9270; J0330; J0461; J0690; J1100; J1170; J1885; J2175; J2250; J2405; J2704; J3010; J3360; J7030; J7120; Q9968

== ENCOUNTER 2025-06-16 10:18 | Outpatient (CLI) | payer OTHER, SELFPAY ==
--- NOTE | ~2025-06-16 | XR_ITS ---
CHEST RADIOGRAPH, PA AND LATERAL CLINICAL HISTORY: Nonspecific reaction to cell mediated immunity measurement. COMPARISON: 03/28/2018 TECHNIQUE: PA and lateral views of the chest. FINDINGS The cardiomediastinal silhouette is unremarkable. The lungs are clear. IMPRESSION: No focal infiltrate or effusion. Reviewed, dictated and finalized at location A.
== END 2025-06-16 10:19 | disposition home or self-care (01) ==
LOC: GOSHIMG 10:19
PROVIDERS: PCP Pediatrics; Visit Provider Pediatrics
DX: R76.12 Nonspecific reaction to cell mediated immunity measurement of gamma interferon antigen response without active tuberculosis (principal)
CPT/HCPCS: 71046